=== PATIENT | male | born 1965 | race Caucasian/White ===

== ENCOUNTER 2024-02-24 09:57 | Emergency (ER) | payer MEDICARE ==
[~2024-02-24] VITALS: Ht 172.7 cm; Wt 84.5 kg
[2024-02-24] MEDS ORDERED: AMOX-580 PO (10:53)
[2024-02-24] MEDS ORDERED: HYDR-3965 PO (10:53)
[2024-02-24 11:02] VITALS: BP 175/122; PULSE 116; RESP 16; TEMP 98.6; O2SAT 96
== END 2024-02-24 11:05 | disposition home or self-care (01) ==
LOC: ER 09:58
DX: K08.89 Other specified disorders of teeth and supporting structures (principal); K00.6 Disturbances in tooth eruption; K04.7 Periapical abscess without sinus; Z79.2 Long term (current) use of antibiotics
CPT/HCPCS: 99283